=== PATIENT | female | born 1990 | race Caucasian/White ===

== ENCOUNTER → 2020-11-02 | Outpatient (CLI) | payer OTHER ==
[~2020-11-02] MED LIST: FLEXERIL 10 MG10 MG PO; TORADOL 10 MG T10 MG PO; ZOFRAN ODT 4 MG4 MG SL
== END ==
LOC: KOH-I 10-30 10:00
DX: R74.8 Abnormal levels of other serum enzymes (principal); K76.0 Fatty (change of) liver, not elsewhere classified
CPT/HCPCS: 76705

== ENCOUNTER 2020-12-04 04:52 | Emergency (ER) | payer OTHER | END 2020-12-04 11:46 | disposition home or self-care (01) | LOC: ER1 04:52 | DX: R51.9 Headache, unspecified (principal); Z90.49 Acquired absence of other specified parts of digestive tract; Z79.899 Other long term (current) drug therapy | CPT/HCPCS: 70450; 96374; 96375; 99284; J1200; J1885; J2765; J7030 ==